=== PATIENT | male | born 1965 | race Two or more races ===

== ENCOUNTER 2023-07-24 16:38 | Inpatient (IN) | payer OTHER ==
[~2023-07-24] VITALS: Ht 167.6 cm; Wt 89.8 kg
[2023-07-24] MEDS ORDERED: TAMS-3 PO (16:56)
[2023-07-24] MEDS ORDERED: ASPI81TA31 PO (16:56)
[2023-07-24] MEDS ORDERED: ATOR80TA PO (16:56)
[2023-07-24] MEDS ORDERED: CARV3.12 PO (16:56)
[2023-07-24] MEDS ORDERED: METO25TA6 PO (16:56)
[2023-07-24] MEDS ORDERED: HYDR25TA4 PO (16:56)
[2023-07-24 18:37] LABS: BASOPHILS # (AUTO) 0.2 K/UL (0.0-0.2); BASOPHILS % (AUTO) 2.9 % (0.0-2.0); EOSINOPHILS # (AUTO) 0.1 K/uL (0.0-0.7); EOSINOPHILS % (AUTO) 1.7 % (0.0-7.0); HEMOGLOBIN 13.4 g/dL (12.5-16.3); LYMPHOCYTES # (AUTO) 1.2 K/uL (0.8-4.8); LYMPHOCYTES % (AUTO) 16.1 % (20.5-51.5); MEAN CORPUSCULAR HEMOGLOBIN 31.7 uug (23.8-33.4); MEAN CORPUSCULAR HGB CONC 34 g/dL (32.5-36.3); MEAN CORPUSCULAR VOLUME 94.7 fL (73.0-96.2); MONOCYTES # (AUTO) 0.6 K/uL (0.1-1.30); NEUTROPHILS # (AUTO) 5.4 K/uL (1.8-8.9); NEUTROPHILS % (AUTO) 71.3 % (38.5-71.5); PLATELET COUNT (AUTO) 211 K/uL (152-348); RED BLOOD CELL COUNT(AUTO) 4.23 MIL/uL (4.06-5.63); RED CELL DISTRIBUTION WIDTH 13.5 % (12.1-16.2); WHITE BLOOD COUNT (AUTO) 7.6 K/uL (3.6-10.2)
[2023-07-24] MEDS: IV NS 1000 ML 1,000 ML IV ONE (18:42)
[2023-07-24 18:54] LABS: CALCIUM 8.7 mg/dL (8.5-10.1); CREATININE 3.2 mg/dL (0.6-1.3); POTASSIUM 4.1 mmol/L (3.5-5.1)
[2023-07-24 19:07] LABS: DIFFERENTIAL COMMENT 1
[2023-07-24 19:09] LABS: ALBUMIN 3.6 g/dL (3.4-5.0); BILIRUBIN,DIRECT 0.3 mg/dL (0.0-0.2); BILIRUBIN,TOTAL 1.6 mg/dL (0.2-1.0); TOTAL PROTEIN, SERUM 7.6 g/dL (6.4-8.2)
[2023-07-24] MEDS ORDERED: ONDANSETRON 4 MG/2 ML VIAL IV PRN (19:30)
[2023-07-24] MEDS ORDERED: REMEDY ESSENTIAL ZINC PASTE 113 GM TP PRN (19:30)
[2023-07-24] MEDS ORDERED: MAGNESIUM HYDROXIDE 30 ML LIQUID UDC PO PRN (19:30)
[2023-07-24] MEDS ORDERED: HYDROCODONE/APAP 5-325MG TABLET PO PRN (19:30)
[2023-07-24] MEDS ORDERED: ACETAMINOPHEN 325 MG TABLET PO PRN (19:30)
[2023-07-24 21:00] VITALS: BP 93/55; TEMP 97.4; O2SAT 97
[2023-07-24] MEDS: ATORVASTATIN 40 MG TABLET PO SCH (21:41)
[2023-07-24] MEDS: IV NS 1000 ML 1,000 ML IV PRN (22:19)
[2023-07-25] MEDS: PANTOPRAZOLE SODIUM 40 MG TABLET.DR PO SCH (06:09)
[2023-07-25 06:26] VITALS: BP 92/58; TEMP 98.2; O2SAT 100
[2023-07-25 07:33] LABS: BASOPHILS # (AUTO) 0.1 K/UL (0.0-0.2); EOSINOPHILS # (AUTO) 0.2 K/uL (0.0-0.7); EOSINOPHILS % (AUTO) 2.3 % (0.0-7.0); HEMATOCRIT 36.8 % (36.7-47.1); HEMOGLOBIN 12.7 g/dL (12.5-16.3); LYMPHOCYTES % (AUTO) 27.8 % (20.5-51.5); MEAN CORPUSCULAR HEMOGLOBIN 32.5 uug (23.8-33.4); MEAN CORPUSCULAR HGB CONC 35 g/dL (32.5-36.3); MEAN CORPUSCULAR VOLUME 94.2 fL (73.0-96.2); MONOCYTES # (AUTO) 0.5 K/uL (0.1-1.30); MONOCYTES % (AUTO) 7.6 % (0.0-11.0); NEUTROPHILS # (AUTO) 4.3 K/uL (1.8-8.9); NEUTROPHILS % (AUTO) 61.3 % (38.5-71.5); PLATELET COUNT (AUTO) 210 K/uL (152-348); RED BLOOD CELL COUNT(AUTO) 3.91 MIL/uL (4.06-5.63); RED CELL DISTRIBUTION WIDTH 13.6 % (12.1-16.2)
[2023-07-25 07:50] LABS: CALCIUM 7.9 mg/dL (8.5-10.1); CREATININE 2.1 mg/dL (0.6-1.3); MAGNESIUM 2.5 mg/dL (1.8-2.4); PHOSPHOROUS 4.5 mg/dL (2.5-4.9); POTASSIUM 3.9 mmol/L (3.5-5.1)
[2023-07-25 07:51] LABS: DIFFERENTIAL COMMENT 1
[2023-07-25 08:02] LABS: THYROID STIMULATING HORMONE 1.004 mIU/mL (0.358-3.740)
[2023-07-25] MEDS: ASPIRIN 81 MG TAB.CHEW PO SCH (08:45)
[2023-07-25] MEDS ORDERED: METOPROLOL TARTRATE 25 MG TABLET PO SCH (09:00)
[2023-07-25] MEDS ORDERED: CARVEDILOL 3.125 MG TABLET PO SCH ×2 (09:00→17:00)
[2023-07-25 11:24] VITALS: BP 119/54; TEMP 98.6; O2SAT 95
[2023-07-25 15:37] VITALS: BP 107/62; TEMP 98.2; O2SAT 97
[2023-07-25] MEDS: METOPROLOL TARTRATE 25 MG TABLET PO SCH (17:37)
[2023-07-25 20:00] VITALS: TEMP 98.2
[2023-07-25] MEDS: TEMAZEPAM 15 MG CAPSULE PO PRN (20:21)
[2023-07-25] MEDS: TAMSULOSIN HCL 0.4 MG CAP.SR.24H PO SCH (20:22)
[2023-07-25] MEDS: ATORVASTATIN 40 MG TABLET PO SCH (20:22)
[2023-07-25] MEDS ORDERED: TAMSULOSIN HCL 0.4 MG CAP.SR.24H PO SCH (21:00)
[2023-07-25] MEDS ORDERED: ATORVASTATIN 40 MG TABLET PO SCH (21:00)
[2023-07-26 04:00] VITALS: TEMP 98.4
[2023-07-26 12:00] VITALS: BP 102/62; TEMP 98.6; O2SAT 96
[2023-07-26 12:24] LABS: CALCIUM 8.3 mg/dL (8.5-10.1); CREATININE 0.9 mg/dL (0.6-1.3)
== END 2023-07-26 14:00 | disposition left against medical advice (07) | DRG 469 ==
LOC: ER 16:40 → MEDSURG3 20:37
PROVIDERS: ADMIT Internal Medicine; ATTEND Nurse Practitioner Acute Care
DX: N17.0 Acute kidney failure with tubular necrosis (principal); M62.82 Rhabdomyolysis; E66.9 Obesity, unspecified; E86.0 Dehydration; F17.210 Nicotine dependence, cigarettes, uncomplicated; I69.328 Other speech and language deficits following cerebral infarction; Z59.01 Sheltered homelessness; R53.1 Weakness; Z79.82 Long term (current) use of aspirin; Z79.899 Other long term (current) drug therapy; N40.0 Benign prostatic hyperplasia without lower urinary tract symptoms; Z68.32 Body mass index [BMI] 32.0-32.9, adult; E78.5 Hyperlipidemia, unspecified; F15.90 Other stimulant use, unspecified, uncomplicated; I10 Essential (primary) hypertension; I45.10 Unspecified right bundle-branch block
CPT/HCPCS: 36415; 71045; 76770; 83735; 84100; 84443; 84484; 85025; 93005; 93307; A4663; G0378; J7040